=== PATIENT | male | born 1990 | race African-American/Black ===

== ENCOUNTER 2025-06-19 03:43 | Emergency (ER) | payer SELFPAY ==
[~2025-06-19] VITALS: Ht 175.3 cm; Wt 94.9 kg
[2025-06-19 03:48] VITALS: O2SAT 99
[2025-06-19] MEDS ORDERED: IBUP-1455 MT (05:25)
[2025-06-19 05:46] VITALS: BP 123/69; PULSE 56; RESP 15; TEMP 36.8; O2SAT 99
[2025-06-19] MEDS: IBUPROFEN 600MG TABLET PO ONE (05:46)
== END 2025-06-19 05:45 | disposition home or self-care (01) ==
LOC: ER 03:43
DX: S63.612A Unspecified sprain of right middle finger, initial encounter (principal); X58.XXXA Exposure to other specified factors, initial encounter; Y93.89 Activity, other specified; Y92.89 Other specified places as the place of occurrence of the external cause; Y99.8 Other external cause status
CPT/HCPCS: 29130; 73130; 99283